=== PATIENT | male | born 1960 | race Caucasian/White ===

== ENCOUNTER 2017-05-04 08:49 | Outpatient (CLI) | payer OTHER ==
--- NOTE | 2017-05-04 10:17 | Ultrasound Report ---
EXAM: ABDOMEN ULTRASOUND EXAM DATE: 05/04/2017 09:47 AM. CLINICAL HISTORY: RIGHT UPPER QUADRANT ABDOMINAL PAIN. COMPARISON: None. TECHNIQUE: Real-time scanning was performed with static images obtained. FINDINGS: Liver: Hepatomegaly with diffusely increased parenchymal echogenicity and decreased ultrasound penetr ation, with focal sparing adjacent to the gallbladder, consistent with fatty infiltration. Capsule co ntour is mildly nodular suggestive of coexisting cirrhosis. No definite focal mass is demonstrated bu t the evaluations is limited because of decreased ultrasound penetration. Craniocaudal span 20.8 cm. Main portal vein flow: Hepatopetal. Gallbladder: Normal. No stones, wall thickening, or sonographic Greene's sign. Biliary System: Common bile duct measures 6.3 mm. No intrahepatic or extrahepatic ductal dilatation. Pancreas: Mostly obscured by bowel gas. Kidneys: Right: 12.9 cm longitudinally. Normal. No contour-deforming mass, stones, or hydronephrosis. Left: 12.4 cm longitudinally. Normal. No contour-deforming mass, stones, or hydronephrosis. Prominent column of Manuel. Spleen: 10.8 x 3.2 x 3.3 cm, 59 cc. Normal in size and echotexture. Aorta and Inferior Vena Cava: Unremarkable. The largest aortic dimension is 2.3 cm. No aneurysm. Other: No ascites. IMPRESSION: 1. Hepatomegaly with fatty infiltration. 2. There is probably coexisting cirrhosis. 3. No definite focal mass is demonstrated in the liver but the evaluations is limited because of decr eased ultrasound penetration. 4. The gallbladder and bile ducts are normal. 5. The pancreas is mostly obscured by bowel gas. [facility] Referring Provider Line: [phone] SITE ID: [id number]
== END 2017-05-04 08:50 | disposition home or self-care (01) ==
LOC: DI 08:49
PROVIDERS: ATTEND Physician Assistant
DX: R10.11 Right upper quadrant pain (principal); K76.0 Fatty (change of) liver, not elsewhere classified
CPT/HCPCS: 76700

== ENCOUNTER 2017-09-23 13:51 | Outpatient (CLI) | payer OTHER ==
--- NOTE | 2017-09-23 15:39 | XRAY Report ---
TWO VIEW CHEST: 09/23/2017 COMPARISON: No comparison. INDICATION: Left-sided inspiratory wheeze. TECHNIQUE: Two views. FINDINGS: Clear lungs. No pneumothorax or pleural effusion. Mediastinum unremarkable. IMPRESSION: NO EVIDENCE OF ACUTE THORACIC PROCESS. TD: 09/23/2017 15:39 MTDD
== END 2017-09-23 13:52 | disposition home or self-care (01) ==
LOC: DI.N 13:51
PROVIDERS: ATTEND Internal Medicine
DX: R06.2 Wheezing (principal)
CPT/HCPCS: 71046

== ENCOUNTER 2018-03-02 18:09 | Outpatient (CLI) | payer OTHER ==
--- NOTE | 2018-03-03 07:04 | Ultrasound Report ---
Reason: GENERALIZED ABDOMINAL PAIN Procedure Date: 03/02/2018 Accession Number: [id number] / [id number] Procedure: US - Abdomen Complete CPT Code: FULL RESULT: EXAM: ABDOMEN ULTRASOUND EXAM DATE: 03/02/2018 07:22 PM. CLINICAL HISTORY: GENERALIZED ABDOMINAL PAIN. COMPARISON: 05/04/2017. TECHNIQUE: Real-time scanning was performed with static images obtained. FINDINGS: Liver: Enlarged, echogenic. Areas of fatty sparing 20.4 cm. Main portal vein flow: Hepatopetal. Gallbladder: No stones, wall thickening, . Sonographic Greene's sign. Biliary System: Common bile duct not identified no intrahepatic or extrahepatic ductal dilatation. Pancreas: Visualized portion is unremarkable. Kidneys: Right: 12.2 cm longitudinally. Normal. No contour-deforming mass, stones, or hydronephrosis. Left: 12 cm longitudinally. Normal. No contour-deforming mass, stones, or hydronephrosis. Spleen: 10.7 cm. Normal in size and echotexture. Aorta and Inferior Vena Cava: Unremarkable. Other: None. IMPRESSION: 1. Enlarged fatty infiltrated liver with areas of fatty sparing [facility]
== END 2018-03-02 18:10 | disposition home or self-care (01) ==
LOC: DI 18:09
PROVIDERS: ATTEND Physician Assistant Medical
DX: K76.0 Fatty (change of) liver, not elsewhere classified (principal); R10.84 Generalized abdominal pain
CPT/HCPCS: 76700

== ENCOUNTER 2018-07-22 14:02 | Outpatient (CLI) | payer OTHER ==
[2018-07-22] MEDS ORDERED: IOPAMIDOL-300 100 ML VIAL ONE (14:24)
[2018-07-22] MEDS ORDERED: IOVERSOL 320 50 ML VIAL ONE (14:24)
[2018-07-22] MEDS ORDERED: IOPAMIDOL-300 100 ML VIAL IVP ONE (16:51)
--- NOTE | 2018-07-23 17:37 | CT Report ---
Reason: CHRONIC PANCREATITIS Procedure Date: 07/22/2018 Accession Number: [id number] / [id number] Procedure: CT - Abdomen/Pelvis W CPT Code: FULL RESULT: EXAM: CT ABDOMEN AND PELVIS EXAM DATE: 07/22/2018 03:50 PM. CLINICAL HISTORY: Chronic pancreatitis. COMPARISONS: None. TECHNIQUE: Routine helical CT imaging was performed through the abdomen and pelvis. IV contrast: ISOVUE 300: 100 mL. Enteric contrast: Yes. Reconstructions: Coronal and sagittal. In accordance with CT protocol optimization, one or more of the following dose reduction techniques were utilized for this exam: automated exposure control, adjustment of mA and/or KV based on patient size, or use of iterative reconstructive technique. FINDINGS: Lung Bases: Unremarkable. Liver: Hepatic steatosis. Gallbladder/Bile Ducts: Unremarkable. Spleen: Normal. Pancreas: Pancreatic appearance is unremarkable with no significant peripancreatic fluid collection or calcifications. Adrenal Glands: Left adrenal nodule 2.7 x 3.0 cm. Right adrenal gland normal. Kidneys: Normal. No masses or hydronephrosis. Peritoneal Cavity/Bowel: Normal. No free fluid, free air or adenopathy. No masses or acute inflammatory process. The appendix is well visualized and normal. Pelvic Organs: Normal. The bladder and visualized pelvic organs are within normal limits. Vasculature: Atherosclerotic with no aneurysm detected. Bones: No significant abnormality. Other: None. IMPRESSION: Relatively unremarkable appearance of the pancreas. Fatty infiltration of the liver, hepatic steatosis. Uncharacterized left adrenal nodule. Recommend characterization by CT adrenal mass protocol with and without contrast. [facility]
[2018-07-26] MEDS ORDERED: IOVERSOL 320 50 ML VIAL PO ONE (09:03)
[2018-07-26] MEDS ORDERED: IOPAMIDOL-300 100 ML VIAL IVP ONE (09:03)
== END 2018-07-22 14:03 | disposition home or self-care (01) ==
LOC: DI 14:02
PROVIDERS: ATTEND Family Medicine
DX: K86.1 Other chronic pancreatitis (principal); K76.0 Fatty (change of) liver, not elsewhere classified; E27.9 Disorder of adrenal gland, unspecified
CPT/HCPCS: 74177; Q9967

== ENCOUNTER 2018-12-21 09:56 | Outpatient (CLI) | payer OTHER ==
[2018-12-21] MEDS ORDERED: REGADENOSON 0.4 MG/5 ML SYRINGE IVP ONE ×2 (10:31→12:47)
[2018-12-21] MEDS ORDERED: AMINOPHYLLINE 250 MG/10 ML VIAL ONE (10:31)
--- NOTE | 2018-12-21 15:18 | CARDIAC PROCEDURE NOTE ---
DATE OF SERVICE: 12/21/2018 Physician: Jiada Jones MD, [facility] INDICATIONS: Chest pain. PROCEDURE: After signing informed consent, the patient underwent a Lexiscan pharmaceutical stress test with nuclear myocardial perfusion imaging. Resting heart rate: 87. Peak heart rate: 109. Resting blood pressure: 127/78. Peak blood pressure: 107/67 then recovered to 145/83. The patient described chest and neck pressure rated 3/10, which subsided spontaneously after 3 minutes. He had no shortness of breath or other symptoms. EKG at rest: Normal sinus rhythm, left atrial enlargement, prolonged QT interval is suspected. EKG at peak: No new ST-segment or T-wave changes. SUMMARY 1. Abnormal resting EKG. 2. No new ST segment or T wave EKG changes to suggest ischemia. 3. Nuclear images reported separately. cc: Sara Sullivan DO TD: 12/21/2018 15:07 MTDD
--- NOTE | 2018-12-21 16:48 | Nuclear Medicine Report ---
Reason: CHEST PAIN Procedure Date: 12/21/2018 Accession Number: [id number] / [id number] Procedure: NM - Myocardial Perfusion STR/RST CPT Code: FULL RESULT: EXAM: SINGLE-ISOTOPE PHARMACOLOGICAL STRESS TEST WITH REGADENOSON. SINGLE-ISOTOPE AND TWO-DAY REST/STRESS MYOCARDIAL PERFUSION SCANS WITH TOMOGRAPHIC IMAGING, QUANTITATIVE ANALYSIS, WALL MOTION ANALYSIS AND CALCULATION OF EJECTION FRACTION. EXAM DATE: 12/21/2018 10:56 AM. CLINICAL HISTORY: CHEST PAIN. COMPARISON: None available. TECHNIQUE: A pharmacological stress was performed with the infusion of 0.4 mg regadenoson per protocol. According to protocol, 10.3 mCi of Tc-99m sestamibi was injected for stress myocardial perfusion scan. Motion correction was applied when appropriate. The following day after the intravenous administration of 42.4 mCi of Tc-99m sestamibi, a rest myocardial perfusion scan was done with tomography. Motion correction was applied when appropriate. Gated tomographic images were obtained for wall motion analysis and computation of left ventricular ejection fraction. FINDINGS: On visual analysis, no fixed or reversible perfusion defects are evident. Computer analysis Summed stress score 8 Summed rest score 2 Summed difference score 6 Wall motion analysis demonstrates no focal wall motion abnormality. The left ventricular end-diastolic volume is 75 cc. The left ventricular end-systolic volume is 22 cc. The left ventricular ejection fraction is calculated to be 71%. IMPRESSION: 1. On visual analysis, no fixed or reversible perfusion defects are evident. 2. Left ventricular ejection fraction of 71%. 3. Normal segmental and global wall motion. 4. Normal left ventricular cavity size, no change with stress. 5. There is a discrepancy between visual analysis and computer analysis. Computer analysis indicates a mildly abnormal study with moderate ischemia in the lateral wall. Please correlate findings with stress ECG tracings and procedure notes. [facility]
== END 2018-12-21 09:57 | disposition home or self-care (01) ==
LOC: DI 09:56
PROVIDERS: ATTEND Family Medicine
DX: R07.9 Chest pain, unspecified (principal); R94.31 Abnormal electrocardiogram [ECG] [EKG]
CPT/HCPCS: 78452; 93017; A9500; J2785

== ENCOUNTER 2019-05-04 13:01 | Outpatient (CLI) | payer OTHER | END 2019-05-04 13:02 | disposition home or self-care (01) | LOC: NS 13:01 | PROVIDERS: ATTEND Physician Assistant | DX: Z71.3 Dietary counseling and surveillance (principal); K31.84 Gastroparesis; K86.81 Exocrine pancreatic insufficiency; K86.1 Other chronic pancreatitis; E11.69 Type 2 diabetes mellitus with other specified complication | CPT/HCPCS: 97802 ==

== ENCOUNTER 2019-06-07 09:28 | Outpatient (CLI) | payer OTHER ==
[2019-06-07 09:46] LABS: BASOPHILS # (AUTO) 0.2 10^3/uL (0.0-0.1); BASOPHILS % (AUTO) 1.2 %; EOSINOPHILS # (AUTO) 0.4 10^3/uL (0.0-0.7); EOSINOPHILS % (AUTO) 2.6 %; HGB - HEMOGLOBIN 14.4 g/dL (14.0-18.0); LYMPHOCYTES # (AUTO) 2.2 10^3/uL (1.5-3.5); LYMPHOCYTES % (AUTO) 15.6 %; MEAN CORPUSCULAR HEMOGLOBIN 30.2 pg (27.0-31.0); MEAN CORPUSCULAR HGB CONC 32.1 g/dL (32.0-36.0); MEAN CORPUSCULAR VOLUME 94.1 fL (80.0-94.0); MEAN PLATELET VOLUME 11.3 fL (7.4-11.4); MONOCYTES # (AUTO) 0.7 10^3/uL (0.0-1.0); MONOCYTES % (AUTO) 4.8 %; NEUTROPHILS # (AUTO) 10.6 10^3/uL (1.5-6.6); NEUTROPHILS % (AUTO) 75.3 %; PLT - PLATELET COUNT 235 10^3/uL (130-450); RED BLOOD COUNT 4.77 10^6/uL (4.70-6.10); RED CELL DISTRIBUTION WIDTH 13.1 % (12.0-15.0); WHITE BLOOD COUNT 14.1 x10^3/uL (4.8-10.8)
[2019-06-07 10:09] LABS: ALBUMIN 3.7 g/dL (3.2-5.5); ALBUMIN/GLOBULIN RATIO 1.1 (1.0-2.2); BILIRUBIN,TOTAL 0.7 mg/dL (0.2-1.0); CALCIUM 9.4 mg/dL (8.5-10.3); CREATININE 0.6 mg/dL (0.6-1.2); TOTAL PROTEIN 7.1 g/dL (6.7-8.2)
[2019-06-07 10:12] LABS: HB2 TOTAL 14.7 g/dL; HEMOGLOBIN A1C 1.4 g/dL; HEMOGLOBIN A1C % 10.9 % (4.6-6.2)
[2019-06-07 10:31] LABS: FOLATE 9.57 ng/mL (5.90 - >24.8)
== END 2019-06-07 09:29 | disposition home or self-care (01) ==
LOC: LAB 09:28
PROVIDERS: ATTEND Physician Assistant
DX: E11.69 Type 2 diabetes mellitus with other specified complication (principal)
CPT/HCPCS: 36415; 80053; 82465; 82607; 82746; 83036; 85025

== ENCOUNTER 2019-06-15 10:48 | Outpatient (CLI) | payer OTHER | END 2019-06-15 10:49 | disposition home or self-care (01) | LOC: NS 10:48 | PROVIDERS: ATTEND Physician Assistant | DX: Z71.3 Dietary counseling and surveillance (principal); E11.69 Type 2 diabetes mellitus with other specified complication; K31.84 Gastroparesis; K86.1 Other chronic pancreatitis; K86.81 Exocrine pancreatic insufficiency | CPT/HCPCS: 97803 ==

== ENCOUNTER 2020-03-18 15:27 | Outpatient (CLI) | payer OTHER ==
--- NOTE | 2020-03-18 16:22 | CT Report ---
PROCEDURE: Low Dose Lung Cancer Screen INDICATIONS: HX OF SMOKING TECHNIQUE: Noncontrast low-dose 5 mm thick sections acquired from the pulmonary apices to the posterior costophr enic angles. 7 mm thick coronal and sagittal MIP reformats were then acquired. For radiation dose r eduction, the following was used: automated exposure control, adjustment of mA and/or kV according t o patient size. COMPARISON: None. FINDINGS: Image quality: Excellent. Lungs and pleura: Patchy bilateral groundglass opacities may either indicate acute inflammation or s ubmaximal inspiration. No suspicious pulmonary nodules. Mediastinum: Heart size is normal. No pericardial effusion. Mild coronary artery calcifications. N o mediastinal adenopathy by size criteria. Thoracic aorta and central pulmonary arteries are normal in size. Esophagus is normal in caliber. No hiatal hernia. Bones and chest wall: No suspicious bony lesions. No vertebral body compression fractures. No axil luc or supraclavicular adenopathy by size criteria. The thyroid appearance seen diffusely enlarged. Abdomen: Mild diffuse hepatic steatosis. IMPRESSION: 1. LungRads category 1: Negative. No nodules and/or definitely benign nodules. 2. Annual low-dose noncontrast CT of the chest is recommended for lung cancer screening. 3. Clinically significant or potentially clinically significant findings (nonlung cancer): Patchy mati ateral groundglass opacities may potentially represent evidence of acute inflammation. Coronary arter y disease. Thyromegaly. Hepatic steatosis. Reviewed by: Anderson Jimenez MD on 03/18/2020 4:21 PM PST Approved by: Anderson Jimenez MD on 03/18/2020 4:21 PM PST Station ID: [id number]
== END 2020-03-18 15:28 | disposition home or self-care (01) ==
LOC: DI 15:27
PROVIDERS: ATTEND Internal Medicine
DX: Z12.2 Encounter for screening for malignant neoplasm of respiratory organs (principal); R91.8 Other nonspecific abnormal finding of lung field; I25.10 Atherosclerotic heart disease of native coronary artery without angina pectoris; E01.0 Iodine-deficiency related diffuse (endemic) goiter; K76.0 Fatty (change of) liver, not elsewhere classified; F17.210 Nicotine dependence, cigarettes, uncomplicated

== ENCOUNTER 2021-02-02 14:54 | Outpatient (CLI) | payer OTHER ==
--- NOTE | 2021-02-02 16:09 | Ultrasound Report ---
PROCEDURE: Ankle Brachial Index INDICATIONS: PERIPHERAL VASCULAR DISEASE TECHNIQUE: Ankle-brachial indices were obtained bilaterally and recorded. COMPARISONS: None. FINDINGS: Right ankle brachial index (BERT): 0.9 Left ankle brachial index (BERT): 0.8 Healing potential: Ankle pressures >55 mm Hg in non-diabetics and >80 mm Hg in diabetics are likely to achieve primary h ealing of ischemic foot ulcers. Toe pressures >30 mm Hg are likely to achieve primary healing of ischemic foot ulcers, toe or transme tatarsal amputations. IMPRESSION: Mildly to moderately reduced ankle-brachial indices, left worse than right. Reviewed by: Eusebio Davis MD on 02/02/2021 3:07 PM [facility]ERT Approved by: Eusebio Davis MD on 02/02/2021 3:07 PM ROBERT Station ID: [id number]
== END 2021-02-02 14:55 | disposition home or self-care (01) ==
LOC: DI 14:54
PROVIDERS: ATTEND Internal Medicine
DX: I73.9 Peripheral vascular disease, unspecified (principal)
CPT/HCPCS: 93922

== ENCOUNTER 2021-03-30 14:41 | Outpatient (CLI) | payer OTHER ==
--- NOTE | 2021-03-30 17:16 | Ultrasound Report ---
PROCEDURE: Duplex Lwr Ext Arterial Bilat INDICATIONS: PERIPHERAL VASCULAR DISEASE TECHNIQUE: Color and pulse Doppler interrogation was performed of both lower extremity arterial systems, with im age documentation. COMPARISON: None FINDINGS: Right lower extremity: Common femoral artery: 153 cm/sec, with triphasic flow. Deep femoral artery: 129 cm/sec, with biphasic flow. Proximal superficial femoral artery: 187 cm/sec, with triphasic flow. Mid superficial femoral artery: 80 cm/sec, with triphasic flow. Distal superficial femoral artery: 54 cm/sec, with triphasic flow. Popliteal artery: 71 cm/sec, with triphasic flow. Posterior tibial artery: 31 cm/sec, with biphasic flow. Anterior tibial artery/dorsalis pedis: 57 cm/sec, with triphasic flow. Navarro-scale imaging description: Mild atherosclerotic plaque Left lower extremity: Common femoral artery: 118 cm/sec, with triphasic flow. Deep femoral artery: 106 cm/sec, with triphasic flow. Proximal superficial femoral artery: 155 cm/sec, with triphasic flow. Mid superficial femoral artery: 104 cm/sec, with triphasic flow. Distal superficial femoral artery: 54 cm/sec, with triphasic flow. Popliteal artery: 58 cm/sec, with triphasic flow. Posterior tibial artery: 70 cm/sec, with triphasic flow. Anterior tibial artery/dorsalis pedis: 58 cm/sec, with triphasic flow. Navarro-scale imaging description: Mild atherosclerotic plaque IMPRESSION: Elevated velocity in the bilateral proximal SFA suggests mild less than 50% focal stenosis. Triphasic waveforms present throughout. Reviewed by: Shawn Cobian MD on 03/30/2021 4:15 PM [place] Approved by: Shawn Cobian MD on 03/30/2021 4:15 PM AKST Station ID: [id number]
== END 2021-03-30 14:42 | disposition home or self-care (01) ==
LOC: DI 14:41
PROVIDERS: ATTEND Internal Medicine
DX: I73.9 Peripheral vascular disease, unspecified (principal)
CPT/HCPCS: 93925

== ENCOUNTER 2021-04-09 14:54 | Outpatient (CLI) | payer OTHER ==
[2021-04-09 16:01] VITALS: BP 117/71
--- NOTE | 2021-04-09 16:01 | SLEEP CARE CONSULTATION ---
Information from patient questionnaire entered by Mayra King MA. I have reviewed and concur with the information entered by Mayra King MA. This document represents the service I personally performed and the decisions made by , Aleta Martínez ARNP. History of Present Illness Service Date and Time: 04/09/2021 1454 Reason for Visit: New patient, Other (INITIAL, ON CPAP, ONSET 05/2004) Chief Complaint: reports: Other (recall) Date of Onset: 2009 Usual bedtime: 1030 Time it takes to fall asleep: 30 minutes Snores at night: Yes Observed to quit breathing while asleep: Yes Sleeps alone due to snoring: No Number of times waking at night: 3 Reasons for waking at night: reports: Gasping for air, Pain, Bathroom Toss, Turn, or Twitch while sleeping: Yes Recalls having dreams: No Usually gets out of bed at: 0630 Feels refreshed in the morning: No Sleepy or fatigued during the day: Yes Ever fallen asleep while driving: No Takes day naps: Yes Dreams during day naps: No Prior sleep studies: Yes Type of Sleep Study: Home sleep study (2012 [facility], [place]) Additional HPI information: BERNARDO CARABALLO was previously diagnosed to have unknown, AHI unknown, sleep apnea-hypopnea syndrome and comes in today to establish care for CPAP therapy. - Parasomnia Symptoms Ever been unable to move upon waking from sleep: No Walks in sleep: No Talks in sleep: No Ever acted out dreams in sleep: No Ever felt weak in the knees when startled or emotional: Yes Bothered by creepy, crawly, restless sensations in legs: Yes Problems with memory or concentration: No CPAP Compliance Data - Data Reviewed with Patient Average duration of nightly device use: 7 hours 53 minutes Compliance rate %: 96.1 (03-08-2019 to 09-03-2019, 180 days) Current pressure setting (cmH2O): 5-8 Average residual AHI: 1.2 Average large leak: 44 seconds Compliance data discussion: He has been getting supplies from [place] by calling a [employer] call line. He received a letter about a recall on his CPAP a few months ago and was advised to see his provider for a new machine. He uses a nasal pillows mask. He needs supplies. He does not have a copy of his last sleep study done in [place]. Subjective Missed days of use due to: reports: other (due to recall) Patient concerns: reports: other (recall on CPAP need new one). denies: aerophagia, mask discomfort, air blowing in eyes, mask leak noise, condensation in mask/hose, nasal congestion, dry mouth, nose, throat, epistaxis Observed to snore while using device: No Current pressure setting perceived as: too low (in last month may be weaker) On therapy, patient: reports: sleeping better, awakening more refreshed, being more awake and alert during the day, more rested overall, other (can't sleep without it). denies: drowsiness while driving Initial [place] Sleepiness Scale score: 8 (in 2020) Past Medical History Past Medical History: reports: Diabetes, Stroke (2005 mini), Arthritis, Insulin resistance, Anemia, Anxiety, Impotence, Asthma, GERD, Other (IBS, chronic cadena creatitis, chronic pain, possible clogged arteries) Social History The patient's occupation is a RE. Patient is and lives in [place]. Have you smoked in the past 12 months: Yes Cigarettes per day (20/pack): 20 Years of smokin Smoking Pack Years: 46.0 Alcohol use: No Caffeine use: Yes Caffeine amount and frequency: 3 x daily Family History Family history of sleep disordered breathing: No Allergies and Home Medications Drug allergies reviewed: Yes (amoxicillin, amitriptyline) Home medication list reviewed: Yes Allergy and home medication list: Oxycodone 10/325 mg, 3 times a day Motrin 800 mg, 3 times a day Gabapentin 800 mg, 3 times a day Metformin 2000 mg a day Low dose antibiotic, unsure of name Physical Exam Vital signs obtained and entered by: Nathalia King CMA AASHAILESH Blood Pressure: 117/71 (left) Cuff size: wrist Heart Rate: 100 O2 Saturation: 98 (with mask) Height: 5 ft 6 in Weight: 232 lb Body Mass Index: 37.4 BMI Classification: Obese Heart: regular rate and rhythm Lungs: clear bilaterally Impression and Plan 1. Obstructive Sleep Apnea-Hypopnea Syndrome, unknown, with good treatment compliance and good apnea control. On CPAP therapy, the patient has better sleep quality and is more rested overall. We will try to get a copy of patient's last sleep study. If we do not get it we will go ahead and have him do sleep study to verify diagnosis and severity. If we are able to obtain a copy of his study then we can go ahead and order him a new device and supplies. He does have an old RemStar 60 series Raul CPAP machine. Patient has already registered their device for the recall. Patient denies any black particles seen in machine or hoses, any unusual odors coming from device. Patient has not experienced any physical symptoms such as upper airway irritation, headache, skin or eye irritation, asthma, nausea/vomiting, difficulty breathing or chest pain. If patient is not able to sleep due to waking up choking, gasping for air or other respiratory distress that they may decide to continue using it until it is either replaced or repaired. Since the patients current machine is at least 5 years old the patient is opting to update their device with a device that is not on the recall. Patient voiced understanding and agreement with plan. Patient's apnea severity and rationale for treatment to reduce apnea, improve sleep quality and reduce cardiovascular and cerebrovascular events was reviewed. I also reviewed the benefit of consistent device use of CPAP for diabetes and g astric reflux. Patient encouraged to try to lose weight. * Continue auto CPAP pressure at 5-8 cmH2O * Polysomnography to verify diagnosis and severity, if unable to get copy of sleep study * Update machine and supplies if able to get copy of sleep study * Notify me if snoring with mask or feeling that the pressure is too much or too little * Attempt to lose weight * Call this office if any problems using CPAP * Return for follow up after sleep study or after obtaining new device, or sooner if concerns arise Counseling Topics: Spare mask, Weight loss health impact Visit Type: In Office Time Spent with Patient (minutes): 44 Provider Statement: I spent 100% of the Face to Face Visit with the patient with greater than 50% spent counseling the patient and coordination of care.
== END 2021-04-09 14:55 | disposition home or self-care (01) ==
LOC: SC 14:54
PROVIDERS: ATTEND Nurse Practitioner Family
DX: G47.33 Obstructive sleep apnea (adult) (pediatric) (principal); F17.210 Nicotine dependence, cigarettes, uncomplicated; E66.9 Obesity, unspecified; Z68.37 Body mass index [BMI] 37.0-37.9, adult
CPT/HCPCS: 99203; 99212

== ENCOUNTER 2021-05-29 16:46 | Outpatient (CLI) | payer OTHER ==
--- NOTE | 2021-05-29 17:55 | XRAY Report ---
PROCEDURE: Lumbar Spine Complete INDICATIONS: BILATERAL LEG WEAKNESS TECHNIQUE: 5 views of the lumbar spine were acquired. COMPARISON: None. FINDINGS: Bones: 5 [id number] vertebrae are present. There is straightening of normal lumbar lordosis. D egenerative endplate changes and bilateral facet arthrosis throughout lumbar spine is seen more promi nent at L4-5 and L5-S1 levels.. No vertebral body compression fractures. No suspicious bony lesions . Soft tissues: Overlying bowel gas pattern is normal. No suspicious soft tissue calcifications. Oblique views shows no gross pars defects. Right worse than left bilateral bony foraminal stenosis at L4-5 and L5-S1 levels are seen. IMPRESSION: 1. Degenerative disc disease throughout lumbar spine more prominent at L4-5 and L5-S1 levels. No acut e compression fracture or spondylolisthesis. 2. No pars defects. Suggestion of mild bilateral bony foraminal stenosis at L4-5 and L5-S1 levels. Reviewed by: Jersey Aceves MD on 05/29/2021 5:54 PM PST Approved by: Jersey Aceves MD on 05/29/2021 5:54 PM PST Station ID: [id number]
== END 2021-05-29 16:47 | disposition home or self-care (01) ==
LOC: DI.N 16:46
PROVIDERS: ATTEND Family Medicine
DX: R29.898 Other symptoms and signs involving the musculoskeletal system (principal); M47.816 Spondylosis without myelopathy or radiculopathy, lumbar region; M47.817 Spondylosis without myelopathy or radiculopathy, lumbosacral region; M51.36 Other intervertebral disc degeneration, lumbar region; M51.37 Other intervertebral disc degeneration, lumbosacral region

== ENCOUNTER 2021-07-04 12:18 | Outpatient (CLI) | payer OTHER | END 2021-07-04 12:19 | disposition home or self-care (01) | LOC: SC 12:18 | PROVIDERS: ATTEND Nurse Practitioner Family | DX: G47.33 Obstructive sleep apnea (adult) (pediatric) (principal); R09.02 Hypoxemia | CPT/HCPCS: 95806 ==

== ENCOUNTER 2021-07-06 07:53 | Outpatient (CLI) | payer OTHER ==
--- NOTE | 2021-07-06 10:38 | Ultrasound Report ---
PROCEDURE: Duplex Lwr Ext Arterial Bilat INDICATIONS: PERIPHERAL VASCULAR DISEASE TECHNIQUE: Color and pulse Doppler interrogation was performed of both lower extremity arterial systems, with im age documentation. COMPARISON: Correlation is made with ankle brachial index, 02/02/2021 FINDINGS: Right lower extremity: Common femoral artery: 150 cm/sec, with triphasic flow. Deep femoral artery: 83 cm/sec, with triphasic flow. Proximal superficial femoral artery: 137 cm/sec, with triphasic flow. Mid superficial femoral artery: 85 cm/sec, with triphasic flow. Distal superficial femoral artery: 72 cm/sec, with triphasic flow. Popliteal artery: 54 cm/sec, with triphasic flow. Posterior tibial artery: 30 cm/sec, with biphasic flow. Anterior tibial artery/dorsalis pedis: 43 cm/sec, with biphasic flow. Navarro-scale imaging description: Calcified plaque can be seen, particularly proximally. Left lower extremity: Common femoral artery: 196 cm/sec, with triphasic flow. Deep femoral artery: 102 cm/sec, with triphasic flow. Proximal superficial femoral artery: 102 cm/sec, with triphasic flow. Mid superficial femoral artery: 236 cm/sec, with triphasic flow. Distal superficial femoral artery: 56 cm/sec, with triphasic flow. Popliteal artery: 51 cm/sec, with triphasic flow. Posterior tibial artery: 59 cm/sec, with biphasic flow. Anterior tibial artery/dorsalis pedis: 49 cm/sec, with triphasic flow. Navarro-scale imaging description: Atherosclerotic plaque can be seen with calcified plaque proximally. IMPRESSION: By velocity criteria, hemodynamically significant stenosis can be seen involving the left common femo ral artery and the left mid superficial femoral artery. Borderline stenosis can also be seen involving the proximal superficial arteries on both sides. Further evaluation with MRI runoff is now recommended (assuming that there is no contraindication). Reviewed by: Eusebio Davis MD on 07/06/2021 9:37 AM [facility] Approved by: Eusebio Davis MD on 07/06/2021 9:37 AM [facility] Station ID: [id number]
== END 2021-07-06 07:54 | disposition home or self-care (01) ==
LOC: DI 07:53
PROVIDERS: ATTEND Family Medicine
DX: I73.9 Peripheral vascular disease, unspecified (principal)
CPT/HCPCS: 93925

== ENCOUNTER 2021-07-06 08:09 | Outpatient (CLI) | payer OTHER ==
--- NOTE | 2021-07-06 10:34 | Ultrasound Report ---
PROCEDURE: Abdomen Complete INDICATIONS: TYPE 2 DIABETES MELLITUS W/ DIABETIC polyneuropathy TECHNIQUE: Real-time scanning was performed of the abdominal and retroperitoneal organs, with image documentatio n. COMPARISON: Prior abdominal ultrasound examinations, 03/02/2019, 05/04/2017. Correlation is made w ith prior CT, 07/22/2018 FINDINGS: Liver: The liver demonstrates enlarged size. The liver demonstrates prominently increased echogenici ty, which limits ultrasound sensitivity for detection of masses. Gallbladder: Layering sludge can be seen within the gallbladder. The gallbladder is abnormally enlarg ed measuring 13.5 x 3.7 cm. The gallbladder wall does not appear thickened. There is no specific hayden cholecystic fluid. The sonographic Greene's sign is negative. Biliary ducts: Intrahepatic bile ducts are non-dilated. Extrahepatic bile duct caliber measures 7 m m. Normal is 6-7 mm or less in diameter, or 10 mm or less post-cholecystectomy. Pancreas: Visualized portions of the pancreas are sonographically normal. Spleen: Spleen is normal in size and homogeneous in echotexture. Kidneys: Kidneys are normal in size and echotexture. Right kidney measures 11.1 cm long; left kidne y measures 11.9 cm long. No hydronephrosis or nephrolithiasis. No solid masses. Apparent mild colum n of Manuel can be seen on both sides. Aorta: Visualized aorta is normal in caliber at less than 3 cm. Atherosclerotic plaque can be seen throughout. Iliacs: Proximal common iliac arteries are normal in caliber at less than 2.5 cm. IVC: Intrahepatic inferior vena cava is patent. Miscellaneous: No free abdominal fluid. IMPRESSION: Enlarged, fatty liver. Sludge is seen within the gallbladder lumen. The gallbladder is abnormally enlarged and hydropic appe aring. Reviewed by: Eusebio Davis MD on 07/06/2021 9:32 AM [facility] Approved by: Eusebio Davis MD on 07/06/2021 9:32 AM [facility] Station ID: [id number]
== END 2021-07-06 08:10 | disposition home or self-care (01) ==
LOC: DI 08:09
PROVIDERS: ATTEND Student in an Organized Health Care Education/Training Program
DX: K76.0 Fatty (change of) liver, not elsewhere classified (principal); E11.42 Type 2 diabetes mellitus with diabetic polyneuropathy; Z79.4 Long term (current) use of insulin

== ENCOUNTER 2021-07-23 14:08 | Outpatient (CLI) | payer OTHER ==
[2021-07-23 14:52] VITALS: BP 134/76
--- NOTE | 2021-07-23 14:52 | SLEEP CARE CONSULTATION ---
Information from patient questionnaire entered by Mayra King MA. I have reviewed and concur with the information entered by Mayra King MA. This document represents the service I personally performed and the decisions made by , Aleta Martínez ARNP. History of Present Illness Service Date and Time: 07/23/2021 1408 Initial [place] Sleepiness Scale score: 8 (in 2020) Current [place] Sleepiness Scale score: 4 (2021) Additional HPI information: BERNARDO CARABALLO returns for follow up and results of the recently performed home sleep study. I explained the pathophysiology behind obstructive sleep apnea. We then spent quite a bit of time discussing different treatment options. For mild obstructive sleep apnea, surgery and oral appliance are alternatives to nasal CPAP therapy but in moderate or severe cases, nasal CPAP is the most effective and reliable treatment. The patient will continue with the nasal CPAP therapy. Nasal autoCPAP is set at 5-8 cmH20 will be ordered to replace his old Remstar machine that is 25 years old. Patient does not drink alcohol. Patient was cautioned about risks of drowsy driving until sleepiness symptoms resolve. Patient denies drowsy driving. Sleep Study - Results Type of Sleep Study: Home sleep study (2011 [place], [place]) Prior sleep studies: Yes Polysomnography/Home Sleep Study results: Physician Impression: The quality of the study is good. The length of the study is adequate (> 240 minutes). Please also see the tabulated and graphic data. 1. Obstructive Sleep Apnea-Hypopnea (ICD-10 G47.33), mild, with an AHI of 6.1/hr and oral SaO2 of 78%. During the study, the patient had 15 apneas (15 obstructive, 0 central, 0 mixed) and 15 hypopneas. The longest episode lasted 81.0 seconds. The respiratory events occurred almost exclusively during supine sleep (supine AHI was 30.0 and non-supine, 3.18). 2. Hypoxemia (ICD-10 R09.02), moderate, with the lowest oxygen saturation of 78 % and 22.3 minutes with SaO2 under 90%. Baseline oxygen saturation was normal (Average oxygen saturation was 91%). Allergies and Home Medications Home medication list reviewed: Yes (no changes) Review of Systems Review of systems same as previous: Yes (no changes) Physical Exam Vital signs obtained and entered by: YAIR CAUSEY Blood Pressure: 134/76 (right, pulse 97, resp 18) Heart Rate: 82 O2 Saturation: 98 (paper) Height: 5 ft 9.5 in Weight: 223 lb Body Mass Index: 32.4 BMI Classification: Obese Impression and Plan 1. Obstructive Sleep Apnea-Hypopnea Syndrome, mild, with lowest oxygen saturation of 78%. Obviously this is the cause of the patients symptoms of unrefreshed sleep, and excessive daytime sleepiness. Positive pressure therapy could benefit diabetes, cerebrovascular disease (hx of stroke), insulin resistance, anxiety and gastric reflux. The patient will be continued on nasal autoCPAP therapy with pressure set at 5-8 cmH2O. The patients CPAP is over 25 years old and of reasonable use. Thus, the CPAP will be updated. A DWO prescription will be made. Compliance guidelines for new device and follow up discussed. 2. Hypoxemia, moderate, with the lowest oxygen saturation of 78 % and 22.3 minutes with SaO2 under 90%. His baseline oxygen saturation was normal with an average oxygen saturation of 91%. * Continue auto CPAP pressure at 5-8 cmH2O * Update CPAP * Update supplies as needed * Notify me if snoring with mask or feeling that the pressure is too much or too little * Attempt to lose weight * Call this office if any problems using CPAP * Return for follow up in 1 year, or sooner if concerns arise Counseling Topics: Weight loss health impact Visit Type: In Office Time Spent with Patient (minutes): 20 Provider Statement: I spent 100% of the Face to Face Visit with the patient with greater than 50% spent counseling the patient and coordination of care.
== END 2021-07-23 14:09 | disposition home or self-care (01) ==
LOC: SC 14:08
PROVIDERS: ATTEND Nurse Practitioner Family
DX: G47.33 Obstructive sleep apnea (adult) (pediatric) (principal); E66.9 Obesity, unspecified; Z68.32 Body mass index [BMI] 32.0-32.9, adult
CPT/HCPCS: 99212; 99213

== ENCOUNTER 2021-08-24 11:46 | Outpatient (CLI) | payer OTHER ==
[2021-08-24 12:23] LABS: ALBUMIN 3.6 g/dL (3.2-5.5); ALBUMIN/GLOBULIN RATIO 1.1 (1.0-2.2); BILIRUBIN,TOTAL 0.6 mg/dL (0.2-1.0); CALCIUM 9.3 mg/dL (8.5-10.3); CREATININE 0.7 mg/dL (0.6-1.2)
[2021-08-24] MEDS ORDERED: IOVERSOL 320 100 ML VIAL IVP ONE ×2 (12:30→13:38)
--- NOTE | 2021-08-24 14:23 | CT Report ---
PROCEDURE: ABDOMEN W/WO INDICATIONS: CHRONIC PANCREATITIS CONTRAST: IV CONTRAST: Optiray 320 ml: 100 PO CONTRAST: *NO PO CONTRAST TECHNIQUE: 4 phase scanning was performed. After the administration of intravenous contrast, 5 mm thick section s acquired from the diaphragm to the symphysis. 5 mm coronal and sagittal reformats were acquired. For radiation dose reduction, the following was used: automated exposure control, adjustment of mA a nd/or kV according to patient size. COMPARISON: Abdominal ultrasound 07/06/2021.. FINDINGS: Image quality: Excellent. Lung bases: Lung bases are clear. Heart size is normal. Liver: Is normal in size and enhancement. Other solid organs: Gallbladder contains tiny stones or sludge. Biliary system is non dilated. Jimenez creas is normal in morphology. Pancreas demonstrates normal postcontrast enhancement. No pancreatic m ass or cysts. No pancreatic calcifications. No pancreatic ductal dilatation. Spleen is normal in size and enhancement. 3.2 cm mass noted in the left adrenal gland which has density measurements of defin ed Hounsfield units. Both kidneys demonstrate normal size and enhancement, without hydronephrosis or nephrolithiasis. Bilateral renal vascular calcifications. Nodes and vessels: No retroperitoneal or mesenteric adenopathy by size criteria. Aorta and inferior vena cava are normal in size. Scattered atherosclerotic calcifications are noted in the abdominal an d pelvic vasculature. Bowel and peritoneum: Unenhanced bowel loops are normal in caliber. No free fluid or air. Bones: No suspicious bony lesions. No vertebral body compression fractures. Miscellaneous: No ventral hernias. IMPRESSION: 1. Gallbladder sludge versus numerous tiny gallstones. 2. Pancreas has normal appearance without evidence of acute pancreatitis or sequela of chronic pancre atitis. 3. No biliary dilatation. No pancreatic ductal dilatation. 4. 3.2 cm soft tissue density left adrenal mass. Recommend dedicated MRI adrenal protocol for definit francesco characterization. Reviewed by: Vaishnavi Richard MD, PhD on 08/24/2021 2:22 PM PDT Approved by: Vaishnavi Richard MD, PhD on 08/24/2021 2:22 PM PDT Station ID: [id number]
== END 2021-08-24 11:47 | disposition home or self-care (01) ==
LOC: LAB 11:46
PROVIDERS: ATTEND Physician Assistant
DX: Z01.818 Encounter for other preprocedural examination (principal); Z20.822 Contact with and (suspected) exposure to COVID-19; R13.10 Dysphagia, unspecified; K31.84 Gastroparesis; E27.8 Other specified disorders of adrenal gland
CPT/HCPCS: 36415; 74170; 80053; 87635; Q9967

== ENCOUNTER 2022-04-23 09:21 | Outpatient (CLI) | payer OTHER ==
[2022-04-23 12:22] LABS: BASOPHILS # (AUTO) 0.2 10^3/uL (0.0-0.1); BASOPHILS % (AUTO) 1.5 %; EOSINOPHILS # (AUTO) 0.3 10^3/uL (0.0-0.7); EOSINOPHILS % (AUTO) 1.9 %; HCT - HEMATOCRIT 46.4 % (42.0-52.0); LYMPHOCYTES # (AUTO) 3.7 10^3/uL (1.5-3.5); MEAN CORPUSCULAR HEMOGLOBIN 30.3 pg (27.0-31.0); MEAN CORPUSCULAR HGB CONC 32.3 g/dL (32.0-36.0); MEAN CORPUSCULAR VOLUME 93.7 fL (80.0-94.0); MEAN PLATELET VOLUME 11.8 fL (7.4-11.4); MONOCYTES # (AUTO) 0.8 10^3/uL (0.0-1.0); MONOCYTES % (AUTO) 5.7 %; NEUTROPHILS # (AUTO) 9.7 10^3/uL (1.5-6.6); NEUTROPHILS % (AUTO) 65.6 %; PLT - PLATELET COUNT 294 10^3/uL (130-450); RED BLOOD COUNT 4.95 10^6/uL (4.70-6.10); RED CELL DISTRIBUTION WIDTH 14.3 % (12.0-15.0); WHITE BLOOD COUNT 14.7 x10^3/uL (4.8-10.8)
[2022-04-23 12:48] LABS: THYROID STIMULATING HORMONE 1.89 uIU/mL (0.34-5.60)
[2022-04-23 12:56] LABS: ALBUMIN/GLOBULIN RATIO 1.1 (1.0-2.2); ALKALINE PHOSPHATASE 64 IU/L (42-121); ALT ALANINE AMINOTRANSFERASE 16 IU/L (10-60); AST ASPARTATE AMINOTRANSFERASE 13 IU/L (10-42); BILIRUBIN,TOTAL 0.5 mg/dL (0.2-1.0); BUN - BLOOD UREA NITROGEN 18 mg/dL (6-20); CALCIUM 10.1 mg/dL (8.5-10.3); CARBON DIOXIDE - CO2 26 mmol/L (21-32); CHLORIDE 105 mmol/L (101-111); CHOL/HDL RATIO 5.2 (<5.0); CHOLESTEROL 170 mg/dL; CREATININE 0.8 mg/dL (0.6-1.2); GFR - MDRD 98 (>89); GLUCOSE 241 mg/dL (70-100); HDL CHOLESTEROL 33 mg/dL; LDL CHOLESTEROL,CALCULATED 78 mg/dL; LDL/HDL RATIO 2.4 (<3.6); POTASSIUM 4.6 mmol/L (3.5-5.0); SODIUM 142 mmol/L (135-145); TOTAL PROTEIN 7.5 g/dL (6.7-8.2); TRIGLYCERIDES 293 mg/dL; VLDL CHOLESTEROL 59 mg/dL
[2022-04-23 13:05] LABS: ESTIMATED AVERAGE GLUCOSE 226 mg/dL (70-100); HEMOGLOBIN A1c% 9.5 % (4.27-6.07)
== END 2022-04-23 09:22 | disposition home or self-care (01) ==
LOC: LAB.N 09:21
PROVIDERS: ATTEND Family Medicine
DX: I10 Essential (primary) hypertension (principal); R68.81 Early satiety; M54.16 Radiculopathy, lumbar region; K58.1 Irritable bowel syndrome with constipation; E11.42 Type 2 diabetes mellitus with diabetic polyneuropathy; K86.1 Other chronic pancreatitis; E78.5 Hyperlipidemia, unspecified; Z79.4 Long term (current) use of insulin
CPT/HCPCS: 36415; 80053; 80061; 82043; 82570; 83036; 83721; 84443; 85025

== ENCOUNTER 2022-04-24 08:00 | Outpatient (CLI) | payer OTHER ==
[2022-04-24 13:18] LABS: CREATININE,URINE 83.9 mg/dL; MICROALBUM/CREATININE RATIO,UR 26.2 ug/mg (<30.0); MICROALBUMIN,URINE 2.2 mg/dL (0-300.0)
== END 2022-04-24 23:59 | disposition home or self-care (01) ==
LOC: LAB.N 08:00
PROVIDERS: ATTEND Family Medicine
DX: I10 Essential (primary) hypertension (principal); R68.81 Early satiety; M54.16 Radiculopathy, lumbar region; K58.1 Irritable bowel syndrome with constipation; E11.42 Type 2 diabetes mellitus with diabetic polyneuropathy; K86.1 Other chronic pancreatitis; E78.5 Hyperlipidemia, unspecified; Z79.4 Long term (current) use of insulin
CPT/HCPCS: 82043; 82570

== ENCOUNTER 2022-04-27 12:59 | Outpatient (CLI) | payer OTHER ==
--- NOTE | 2022-04-27 13:57 | XRAY Report ---
PROCEDURE: Chest 2 View X-Ray INDICATIONS: SHORT OF BREATH TECHNIQUE: 2 views of the chest were acquired. COMPARISON: 09/23/2018 FINDINGS: Surgical changes and devices: None. Lungs and pleura: No pleural effusions or pneumothorax. Mild patchy bibasilar pulmonary opacity. Mediastinum: Mediastinal contours are normal. Heart size is normal. Bones and chest wall: No suspicious bony abnormalities. Soft tissues appear unremarkable. IMPRESSION: Bibasilar pneumonia. Follow-up PA and lateral chest x-rays or chest CT is recommended to ensure resol ution, and to exclude underlying neoplasm. Reviewed by: Yvette Gary MD on 04/27/2022 12:55 PM [facility] Approved by: Yvette Gary MD on 04/27/2022 12:55 PM [facility] Station ID: [id number]
== END 2022-04-27 13:00 | disposition home or self-care (01) ==
LOC: DI 12:59
PROVIDERS: ATTEND Physician Assistant
DX: J18.9 Pneumonia, unspecified organism (principal)

== ENCOUNTER 2022-12-04 11:48 | Outpatient (CLI) | payer MEDICARE, OTHER ==
--- NOTE | 2022-12-04 18:10 | CT Report ---
PROCEDURE: Low Dose Lung Cancer Screen INDICATIONS: CURRENT SMOKER TECHNIQUE: A CT scan of the chest was performed. Intravenous contrast media was not administered. Images were re corded and evaluated at appropriate window settings. Reformats: axial MIP of the chest, coronal and s agittal. For radiation dose reduction, the following was used: automated exposure control, adjustment of mA and/or kV according to patient size. COMPARISON: 03/18/2020 FINDINGS: Image quality: Excellent. Prior cancer history: Unknown Lungs and pleura: No pleural effusions. No pneumothorax. No suspicious pulmonary nodules which requi re follow up. Mild bibasilar atelectasis. No suspicious pulmonary mass. No septal thickening or nodul arity. Mediastinum: Heart size is normal. No pericardial effusion. No large vessel abnormality. No mediastin al adenopathy by size criteria. Atherosclerotic calcifications of the coronary arteries and thoracic aorta. Chest wall and lower neck: Thyroid is unremarkable. No axillary or supraclavicular adenopathy by size . Bones: No aggressive osseous abnormality. Upper Abdomen: Unremarkable. IMPRESSION: Lung RAD: 1 - Negative. Recommendation: Continue annual screening in 12 Months with LDCT Non-Lung Significant Findings: Coronary Arterial Calcification - Moderate or Severe. Reviewed by: Jersey Cunningham MD on 12/04/2022 5:09 PM [facility] Approved by: Jersey Cunningham MD on 12/04/2022 5:09 PM [id number] Station ID: [id number]
== END 2022-12-04 11:49 | disposition home or self-care (01) ==
LOC: DI 11:48
PROVIDERS: ATTEND Internal Medicine
DX: Z12.2 Encounter for screening for malignant neoplasm of respiratory organs (principal); F17.210 Nicotine dependence, cigarettes, uncomplicated; I25.10 Atherosclerotic heart disease of native coronary artery without angina pectoris